=== PATIENT | female | born 1955 | race Caucasian/White ===

== ENCOUNTER 2018-02-11 05:53 | Emergency (ER) | payer BC ==
--- NOTE | 2018-02-11 06:07 | EDPHY ---
H & P Stated Complaint: Fell tripped yesterday and now having right forearm pain Time Seen by Provider: 02/11/18 06:07 HPI/ROS: HPI CHIEF COMPLAINT: Right elbow pain. HISTORY OF PRESENT ILLNESS: Patient is a 62-year-old female, she is otherwise healthy without any significant medical history presents emergency room with right elbow pain and right proximal forearm pain. She went for walk yesterday around 5:00 p.m. She tripped and fell landing on her right elbow. Since then she has had ongoing pain. Woke up this morning with worsening pain. Describes it as 6/10 throbbing. Main location right posterior elbow. The with range of motion or supination or pronation causes pain. Past Medical History: Denies significant medical Past Surgical History: He denies significant surgical history Social History: Denies drugs alcohol tobacco. Family History: Noncontributory ROS REVIEW OF SYSTEMS: 10 Systems were reviewed and negative with the exception of the elements mentioned in the history of present illness. Exam Constitutional triage nursing summary reviewed, vital signs reviewed, awake/ alert. Eyes normal conjunctivae and sclera, EOMI, PERRLA. HENT normal inspection, atraumatic, moist mucus membranes, no epistaxis, neck supple/ no meningismus, no raccoon eyes. Respiratory clear to auscultation bilaterally, normal breath sounds, no respiratory distress, no wheezing. Cardiovascular rate normal, regular rhythm, no murmur, no edema, distal pulses normal. Gastrointestinal soft, non-tender, no rebound, no guarding, normal bowel sounds, no distension, no pulsatile mass. Genitourinary no CVA tenderness. Musculoskeletal right upper extremity: Good radial pulse, good cap refill, range of motion causes discomfort. And specially supination pronation. Tender palpation over the olecranon. Otherwise distally right upper extremity neurovascular intact good aluminum pool installer strength, good cap refill, good radial pulse. no midline vertebral tenderness, full range of motion, no calf swelling, no tenderness of extremities, no meningismus, good pulses, neurovascularly intact. Skin pink, warm, & dry, no rash, skin atraumatic. Neurologic awake, alert and oriented x 3, AAOx3, moves all 4 extremities equally, motor intact, sensory intact, CN II-XII intact, normal cerebellar, normal vision, normal speech. Psychiatric normal mood/affect. Heme/Lymph/Immune no lymphadenopathy. Differential Diagnosis: Includes but is not limited to in a particular order elbow contusion, elbow sprain, elbow fracture, radial head fracture Medical Decision Making: Plan for this patient she declined pain medicine this time in emergency room. X-ray right elbow, x-ray right forearm. Re-evaluation: X-ray of the right elbow, and right forearm reviewed. This shows possible radial head fracture. Patient be splinted posterior long-arm splint with sling. Recommend orthopedic follow-up. Recommend sling and splint for comfort. Return to the ER for worsening symptoms questions concerns. Follow up with Orthopedics. Patient splinted posterior long-arm splint. For comfort. Concern for radial head fracture. Understands follow-up with Orthopedics. 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 - Social History Smoking Status: Never smoked Constitutional: Initial Vital Signs Temperature (C) 36.8 C 02/11/18 05:55 Heart Rate 82 02/11/18 05:55 Respiratory Rate 16 02/11/18 05:55 Blood Pressure 162/84 H 02/11/18 05:55 O2 Sat (%) 95 02/11/18 05:55 O2 Delivery Mode Room Air Allergies/Adverse Reactions: No Known Allergies Allergy (Unverified 02/11/18 05:59) Home Medications: Medication Instructions Recorded Hydrocodone/APAP 5/325 [[place] 1 - 2 tab PO Q4H PRN #10 tab 02/11/18 5/325] Ibuprofen [Motrin (*)] 800 mg PO Q6-8PRN #10 tab 02/11/18 Departure - Departure Disposition: Home, Routine, Self-Care Clinical Impression: Elbow fracture Qualifiers: Encounter type: initial encounter Fracture type: closed Laterality: right Qualified Code(s): S42.401A - Unspecified fracture of lower end of right humerus , initial encounter for closed fracture Condition: Good Instructions: Elbow Fracture (ED) Additional Instructions: 1. Please follow up with Orthopedics 2. Splint and sling for comfort. 3. Return if worsening symptoms questions or concerns. Referrals: NONE *PRIMARY CARE P,. [Primary Care Provider] - As per Instructions Raffaele Chen MD [Medical Doctor] - As per Instructions Prescriptions: Hydrocodone/APAP 5/325 [[place] 5/325] 1 - 2 tab PO Q4H PRN #10 tab PRN Reason: Pain, Moderate Ibuprofen [Motrin (*)] 800 mg PO Q6-8PRN #10 tab
[2018-02-11 08:49] VITALS: BP 144/98
== END 2018-02-11 08:15 | disposition home or self-care (01) ==
PROC: 2W38X1Z Immobilization of Right Upper Extremity using Splint (ICD-10-PCS; principal; 2018-02-11)
DX: S42.494A Other nondisplaced fracture of lower end of right humerus, initial encounter for closed fracture (principal); W01.0XXA Fall on same level from slipping, tripping and stumbling without subsequent striking against object, initial encounter; Y93.01 Activity, walking, marching and hiking; Y99.8 Other external cause status
CPT/HCPCS: A4565

== ENCOUNTER → 2018-08-11 | Outpatient (CLI) | payer OTHER, MEDICARE | LOC: FIMAGING 11:35 | PROVIDERS: ATTEND Orthopaedic Surgery | DX: M16.11 Unilateral primary osteoarthritis, right hip (principal) ==

== ENCOUNTER 2018-09-07 05:42 | Inpatient (IN) | payer OTHER, MEDICARE ==
[2018-09-07] MEDS ORDERED: TRANEXAMIC ACID 1,000 MG in NS 100 ML IV ONE (06:00)
[2018-09-07] MEDS ORDERED: ROPIVACAINE 0.2% 80 MG, EPINEPHrine 0.2 MG, KETOROLAC TROMETHAMINE 30 MG in SYRINGE 0 ML IU ONE (06:00)
[2018-09-07] MEDS ORDERED: POVIDONE-IODINE 20 ML in SODIUM CL IRRIG SOLUTION 500 ML IRR ONE (06:00)
[2018-09-07] MEDS ORDERED: ACETAMINOPHEN 325 MG TAB PO ONE (06:10)
[2018-09-07] MEDS ORDERED: DEXAMETHASONE 4 MG/ML VIAL IVP ONE (06:10)
[2018-09-07] MEDS ORDERED: FAMOTIDINE 20 MG TAB PO ONE (06:10)
[2018-09-07] MEDS ORDERED: ceFAZolin 2 GM/DEXTROSE 100 ML IV ONE (06:10)
[2018-09-07] MEDS ORDERED: LR 1,000 ML IV ONE (06:12)
[2018-09-07] MEDS ORDERED: LIDOCAINE 1% 2 ML INJ ID PRN (06:12)
[2018-09-07] MEDS ORDERED: BUPIVACAINE/EPI 0.5% 30 ML SDV ONE (06:36)
--- NOTE | 2018-09-07 07:04 | PDHPUP ---
History & Physical Update H&P update statement: This history and physical update is based on an assessment of the patient which was completed after admission or registration (within 24 hours), but prior to the surgery/procedure. H&P update: H&P reviewed & patient examined, no change in patient's condition since H&P completed
[2018-09-07] MEDS ORDERED: MIDAZOLAM 2 MG/2 ML VIAL IVP ONE (07:05)
[2018-09-07] MEDS ORDERED: MIDAZOLAM 2 MG/2 ML VIAL ONE (07:06)
--- NOTE | 2018-09-07 07:07 | PDANEPAE ---
ANE History of Present Illness 63 year old with right hip arthritis ANE Past Medical History - Cardiovascular History Hx Hypertension: No Hx Arrhythmias: No Hx Chest Pain: No Hx Coronary Artery / Peripheral Vascular Disease: No Hx CHF / Valvular Disease: No Hx Palpitations: Yes Cardiovascular History Comment: INTERMITTENT PAC'S,PVC'S. PREV CARDIAC WORKUPS NEG - Pulmonary History Hx COPD: No Hx Asthma/Reactive Airway Disease: No Hx Recent Upper Respiratory Infection: No Hx Oxygen in Use at Home: No Hx Sleep Apnea: No Sleep Apnea Screening Result - Last Documented: Negative - Neurologic History Hx Cerebrovascular Accident: No Hx Seizures: No Hx Dementia: No - Endocrine History Hx Diabetes: No - Renal History Hx Renal Disorders: No - Liver History Hx Hepatic Disorders: Yes Hepatic History Comment: SEE PREV SURGERIES - Neurological & Psychiatric Hx Hx Neurological and Psychiatric Disorders: No - Cancer History Hx Cancer: No - Congenital Disorder History Hx Congenital Disorders: No - GI History Hx Gastrointestinal Disorders: No - Other Health History Other Health History: OSTEOARTHRITIS - Chronic Pain History Chronic Pain: Yes (RT HIP) - Surgical History Prior Surgeries: CHAPO/1 REMVL OF PANCREAS,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 LT BREAST BX ANE Review of Systems Review of Systems: - Exercise capacity METS (RN): 4 METS ANE Patient History - Allergies Allergies/Adverse Reactions: No Known Allergies Allergy (Verified 08/11/18 11:31) - Home Medications Home Medications: Cholecalciferol Vit D3 [Vitamin D3 (*)] 1,000 units PO DAILY 08/11/18 [Last Taken 08/24/18] Herbals/Supplements -Info Only 1 ea PO DAILY 08/11/18 [Last Taken 08/24/18] Ibuprofen [Motrin (*)] 200 mg PO Q4HRS PRN 08/11/18 [Last Taken 08/24/18] Multivitamins [Multivitamin (*)] 1 each PO DAILY 08/11/18 [Last Taken 08/24/18] [place]-3 Fatty Acids [Fish Oil 1000 mg (*)] 1,000 mg PO DAILY 08/11/18 [Last Taken 08/24/18] Vitamin B Complex [Vitamin B Complex (OTC)] 1 each PO DAILY 08/11/18 [Last Taken 08/24/18] ACETAMINOPHEN DAILY 08/18/18 [Last Taken 09/06/18 21:00] Valtrex PRN 08/18/18 [Last Taken 08/28/18] - Smoking Hx Smoking Status: Never smoked ANE Labs/Vital Signs - Vital Signs Height: 152.4 cm Weight: 86.183 kg ANE Physical Exam - Airway Neck exam: FROM Mallampati Score: Class 1 - Pulmonary Pulmonary: no respiratory distress - Cardiovascular Cardiovascular: regular rate and rhythym - ASA Status ASA Status: II ANE Anesthesia Plan Anesthesia Plan: spinal
[2018-09-07] MEDS ORDERED: PROPOFOL/EMULSION 500 MG/50 ML BOTTLE IV ONE ×2 (07:17→09:16)
[2018-09-07] MEDS ORDERED: fentaNYL 100 MCG/2 ML INJ ONE (07:17)
[2018-09-07] MEDS ORDERED: ONDANSETRON 4 MG/2 ML VIAL IVP PRN ×2 (09:22→09:23)
[2018-09-07] MEDS ORDERED: NALOXONE HCL 0.4 MG/ML INJ IVP PRN (09:22)
[2018-09-07] MEDS ORDERED: PROMETHAZINE HCL 25 MG/ML INJ IVP PRN ×2 (09:22→09:23)
[2018-09-07] MEDS ORDERED: fentaNYL 100 MCG/2 ML INJ IVP PRN (09:22)
[2018-09-07] MEDS ORDERED: diphenhydrAMINE 25 MG CAP PO PRN (09:23)
[2018-09-07] MEDS ORDERED: BISACODYL 10 MG SUPP PR PRN (09:23)
[2018-09-07] MEDS ORDERED: TEMAZEPAM 15 MG CAP PO PRN (09:23)
[2018-09-07] MEDS ORDERED: POLYETHYLENE GLYCOL 3350 17 GM PKT PO PRN (09:23)
[2018-09-07] MEDS ORDERED: METOCLOPRAMIDE 10 MG/2 ML VIAL IVP PRN (09:23)
[2018-09-07] MEDS ORDERED: ONDANSETRON DISINTEGRATING 4 MG TAB PO PRN (09:23)
[2018-09-07] MEDS ORDERED: MAGNESIUM HYDROXIDE 30 ML UDCUP PO PRN (09:23)
[2018-09-07] MEDS ORDERED: PROMETHAZINE HCL 25 MG SUPPR PR PRN (09:23)
[2018-09-07] MEDS ORDERED: DIPHENOXYLATE/ATROPINE LOMOTIL 1 TAB PO PRN (09:23)
[2018-09-07] MEDS ORDERED: CYCLOBENZAPRINE 10 MG TAB PO PRN (09:23)
[2018-09-07] MEDS ORDERED: LACTULOSE 20 GM/30 ML UDCUP PO PRN (09:23)
--- NOTE | 2018-09-07 09:23 | POSTOPPROG ---
Post Op Note Date of Operation: 09/07/18 Surgeon: Domingo Valenzuela Senior Research Consultant: ROSARIO Mooney Anesthesiologist: MD Kvng Anesthesia: IV Sedation, Spinal Pre-op Diagnosis: R hip OA Post-op Diagnosis: same Procedure: R ant JEANCARLOS with DESI Inf/Abcess present in the surg proc area at time of surgery?: No EBL: 100-500 (300) Drains: Hemovac
--- NOTE | 2018-09-07 09:23 | POSTANESTH ---
Post Anesthetic Evaluation Cardiovascular Status: Normal, Stable Respiratory Status: Normal, Stable Level of Consciousness/Mental Status: Can Participate in Eval Pain Control: Adequate, Prn Tx Ordered Nausea/Vomiting Control: Adequate, Prn Tx Ordered Complications Possibly Related to Anesthesia: None Noted
[2018-09-07] MEDS ORDERED: LR 1,000 ML IV SCH (09:30)
[2018-09-07] MEDS: CHOLECALCIFEROL VIT D3 1,000 UNITS TAB PO SCH (11:04)
[2018-09-07] MEDS: MULTIVITAMINS 1 EACH TAB PO SCH (11:05)
[2018-09-07] MEDS: VITAMIN B COMPLEX 1 EA CAP/TAB PO SCH (11:05)
--- NOTE | 2018-09-07 11:09 | SOAPPROG ---
SOAP Progress Note Assessment/Plan: Assessment: s/p right JEANCARLOS, anterior approach, DESI assist - procedure earlier this morning Plan: Begin discharge planning - likely going home tomorrow, will have support of her Continue PT efforts - follow anterior total hip precautions. She has outpatient PT scheduled for next Tuesday Continue pain medication - celebrex, oxycodone, tylenol, flexeril ordered Continue VTE ppx - aspirin 81 mg BID, SCDs, TIFFANIE hose Remove drain tomorrow morning Subjective: Patient states she is feeling pretty good at this time, right hip pain is minimal. She is hoping to go home tomorrow, she will have the support of her at home. She complains of having some left shoulder pain, primarily in the posterior aspect. She denies shortness of breath, chest pain, fever, chills , nausea Objective: Vital Signs Temp Pulse Resp BP Pulse Ox 35.9 C L 60 14 126/76 H 97 09/07/18 10:39 09/07/18 10:39 09/07/18 10:39 09/07/18 10:39 09/07/18 10:39 09/06/18 09/07/18 09/08/18 05:59 05:59 05:59 Intake Total 1500 Output Total 1050 Balance 450 Patient resting comfortably in bed, no acute distress. RLE: Hemovac is in place. Mepilex is clean, dry and intact. Mild edema about the hip. No significant erythema or purulent drainage. Calf is soft and nontender. She can actively DF and PF her right foot and great toe against resistance. Grossly NVI distally. Warm blanket was applied to the posterior aspects of the patients shoulders, this seemed to alleviate the left shoulder pain. ICD10 Worksheet Patient Problems: Problems Problem Status Onset Osteoarthritis of right hip Acute
[2018-09-07] MEDS: oxyCODONE IR 5 MG TAB PO PRN ×3 (11:54→21:49)
--- NOTE | 2018-09-07 12:08 | PDMN ---
Medical Necessity Medical necessity: [facility] IP only surgery; cpt 51052 R JEANCARLOS
[2018-09-07] MEDS: ACETAMINOPHEN 325 MG TAB PO SCH ×2 (15:02→21:47)
[2018-09-07] MEDS: ceFAZolin 2 GM/DEXTROSE 100 ML IV SCH ×2 (15:03→23:48)
[2018-09-07] MEDS: FAMOTIDINE 20 MG TAB PO SCH (21:04)
[2018-09-07] MEDS: SENNOSIDES/DOCUSATE SODIUM TAB PO SCH (21:04)
[2018-09-07] MEDS: ASPIRIN 81 MG CHEWABLE TAB PO SCH (21:04)
--- NOTE | 2018-09-07 23:27 | GOP ---
[f rep st] OPERATIVE REPORT DATE OF OPERATION: 09/07/2018 SURGEON: Domingo Valenzuela MD DIRECTOR OF SOCIAL MEDIA MARKETING: Cipriano Mooney, CSFA, LSA. Handicrafts Teacher was required for the procedure due to the comple xity of the case, patient's condition for positioning, prepping, draping, retraction, and closure. ANESTHESIA: Spinal and IV sedation. PREOPERATIVE DIAGNOSIS: Right hip osteoarthritis. POSTOPERATIVE DIAGNOSIS: Right hip osteoarthritis. PROCEDURE PERFORMED: Right hip anterior approach hip replacement with MAKOplasty robotic guidance, f luoroscopic supervision greater than 1 hour. FINDINGS: SPECIMENS: Femoral head x1. ESTIMATED BLOOD LOSS: 300 cc. INDICATIONS: Patient has severe hip osteoarthritis that failed to improve with conservative measures significantly affecting activities of daily living including walking. The patient elected to procee d with anterior approach hip replacement using MAKOplasty robotic guidance after extensive discussion of all possible approaches as well as the risks, benefits, pros, cons, expected recovery and prognos is. The patient verbalized understanding of the risks, benefits, procedure and signed informed conse nt prior to the procedure. DESCRIPTION OF PROCEDURE: The patient was seen in the holding area. Operative consent and extremity were signed. The patient was taken to the operating room. After smooth induction of spinal anesthe víctor and sedation, she was placed in supine position on the operating room table with the arch table e xtension. Hip and contralateral iliac crest were prepped and draped in the usual sterile fashion. T he operative site was confirmed by signature. Operative time-out performed. Allergies reviewed. An tibiotics and TXA were administered. Three pins were placed in the contralateral iliac crest. Pelvic array was fixed. It was well visual ized by the robot. Desired incision for the anterior approach hip was infiltrated with 0.25% Marcain e with epinephrine. Incision was made with a 10 blade, carried down through the subcutaneous tissue to identify the TFL fascia. This was incised in line with the incision, and the TFL was retracted la terally. Lateral femoral circumflex vessels were coagulated with Aquamantys. The deep TFL fascia wa s incised and the vastus lateralis was clearly exposed. Precapsular fat was excised. A T-shaped cap sulotomy was performed. The capsule was preserved for later closure. The femoral neck cut was then performed based on pretemplated calculations and imaging. The femoral head was excised with a corkscrew. The acetabulum was exposed in standard fashion. The labrum, pulvinar, soft tissues were excised melissa ply. Pelvic checkpoint was placed in the AIIS, and acetabular registration was performed using the r obot. Reaming was then performed using the robot to the desired size. Cup was impacted into place a gain with robotic guidance system. Good fixation was achieved. The cup was irrigated and dried, and the liner was impacted into place achieving good locking within the cup. The femur was then exposed in standard fashion. The femur was broached to the desired size. Trial n moe and head were attached, and the hip was relocated. The position of all components was confirmed fluoroscopically. The foot was externally rotated 90 degrees, extended to the floor, and stability w as confirmed. The hip was then dislocated, and the femoral trial components were removed. The stem was impacted into place. The trunnion was then cleaned and dried, and the head was impacted down ont o the trunnion. The wound was copiously irrigated including the cup with pulse lavage, and the hip w as once again relocated. Component placement was confirmed with fluoroscopy. All checkpoints were removed. The pelvic array was also removed. The wound was copiously irrigated with sterile solution. Dilute Betadine solution was then irrigated into the wound and allowed to soa k for 3 minutes before being irrigated out. Joint cocktail was injected in the soft tissue, and caps ule and indirect head of the rectus femoris were repaired with #1 Vicryl sutures. A drain was placed exiting distally and laterally from deep to TFL. The wound was then closed in layers with 0 Quill i n the TFL fascia and deep subcutaneous fat, 3 oversew lock in the dermis. Wound was dressed with allyn rile dressing. Patient was safely awakened and taken to the recovery room and taken in stable condit ion. All critical portions of procedure were performed by myself, Dr. Valenzuela. This operative note was creat ed by myself, and I was immediately available for emergency cross-coverage at all times. DRAINS: Hemovac x1. COMPLICATIONS: None. IMPLANTS: Include Jasper Trident II Tritanium cluster hole acetabular shell size 50 mm with a 0-deg ree, 36 mm polyethylene liner. Jasper Accolate II size 4 stem 127-degree offset with a 36 mm -2.5 m m head. /[id number]/MODL
[2018-09-08] MEDS: ACETAMINOPHEN 325 MG TAB PO SCH ×2 (03:36→08:12)
--- NOTE | 2018-09-08 07:19 | SOAPPROG ---
SOAP Progress Note Assessment/Plan: Assessment: 63-year-old female postop day 1 status post right anterior total hip Plan: Weightbear as tolerated with assistance, PT/OT DVT prophylaxis: SCDs Rahul naranjoe aspirin 81 mg twice daily Incentive spirometry 10 times per hour Analgesics: Oxycodone, Celebrex Disposition: Home after physical therapy this morning 09/08/18 07:20 Subjective: No acute events overnight. Pain well controlled. Denies fevers chills nausea vomiting chest pain shortness of breath tingling. Admits to mild numbness over the anterior right thigh. Still complains of right knee pain she had preoperatively. Also high and ankle soreness most likely related to surgical positioning which has resolved Objective: Vital Signs Temp Pulse Resp BP Pulse Ox 36.9 C 79 16 128/80 H 92 09/07/18 23:51 09/07/18 23:51 09/07/18 23:51 09/07/18 23:51 09/07/18 23:51 Laboratory Results 09/08/18 04:13 09/07/18 09/08/18 09/09/18 05:59 05:59 05:59 Intake Total 5568 Output Total 4055 Balance 1513 Week alert and oriented x3 new line easy nonlabored breathing Right thigh: Dressing clean dry intact no erythema drainage or signs of infection Drain removed Thigh and calf compartments soft compressible Motor intact EHL FHL tibialis anterior gastrocsoleus Sensation intact to light touch L4-S1 Palpable DP PT pulses - Time Spent With Patient Time Spent With Patient: 10 - Pending Discharge Pending Discharge Within 24 Hours: Yes Pending Discharge Date: 09/08/18 Pending Discharge Time: 11:00 ICD10 Worksheet Patient Problems: Problems Problem Status Onset Osteoarthritis of right hip Acute
[2018-09-08 07:42] VITALS: BP 124/68
[2018-09-08] MEDS: oxyCODONE IR 5 MG TAB PO PRN (08:12)
[2018-09-08] MEDS: FAMOTIDINE 20 MG TAB PO SCH (08:13)
[2018-09-08] MEDS: MULTIVITAMINS 1 EACH TAB PO SCH (08:13)
[2018-09-08] MEDS: VITAMIN B COMPLEX 1 EA CAP/TAB PO SCH (08:13)
[2018-09-08] MEDS: SENNOSIDES/DOCUSATE SODIUM TAB PO SCH (08:13)
[2018-09-08] MEDS: ASPIRIN 81 MG CHEWABLE TAB PO SCH (08:13)
[2018-09-08] MEDS: CHOLECALCIFEROL VIT D3 1,000 UNITS TAB PO SCH (08:13)
--- NOTE | 2018-09-08 08:39 | PDDCSUM ---
Discharge Summary Discharge Summary: ADMISSION DIAGNOSIS: Right hip severe degenerative arthritis DISCHARGE DIAGNOSIS: Right hip severe degenerative arthritis DATE/OPERATION PERFORMED: September 07, 2018/Right total hip arthroplasty, anterior approach, DESI assist POSTOPERATIVE COMPLICATIONS: None CONDITION ON DISCHARGE: Improved HPI: The patient is a 63 year old female who has end-stage arthritis of her right hip. Clinical and radiographic features are consistent with this. Patient has failed attempts at conservative management, therefore, recommended operative right total hip replacement. DESCRIPTION OF HOSPITAL COURSE: The patient was admitted to the hospital on the morning of surgery. The patient was cleared by her PCP to proceed with the right total hip arthroplasty. The same day, under spinal anesthesia and IV sedation patient underwent a right total hip arthroplasty, anterior approach, DESI assist. Postoperatively, patient was treated with multimodal DVT prophylaxis, including aspirin 81 mg twice per day, SCDs, TIFFANIE hose. Patient was seen by PT and made good progress with ambulation and stairs. On the first post- operative day the patients H&H was 12.1/36.5. On the morning of POD 1 she did experience dizziness, lightheadedness and a bit of nausea as she stood up from her chair after doing exercises on her own. BP was taken and she was a bit hypotensive. This has since resolved and she has not had any other episodes. Patient was able to void spontaneously. At the time of discharge, patient was afebrile, wound was clean and dry. Lower leg compartments are soft and nontender. Grossly NVI distally. Patient is dependently walking with a walker. DISPOSITION: The patient is discharged home and will have her outpatient PT evaluation next Tuesday. Patient may progress to full weightbearing on the right lower extremity as tolerated. She will continue to take aspirin 81 mg twice per day for VTE prophylaxis until 3 weeks post-operative. Patient has prescriptions for Percocet and Celebrex for pain control. She can also continue to take Tylenol as needed for pain. The patient will be seen by Dr. Valenzuela in the office for her 2 week post-operative appointment. If there are any problems, patient is to call Dr. Valenzuela's office.
--- NOTE | 2018-09-08 09:38 | ASMTLACE ---
LACE Length of stay for Answers: 2 days current admission Acuity / Level of Answers: Yes Care: Did the patient have an inpatient admission? Comorbidities - select Answers: Opioid dependence all that apply / Chronic pain # of Emergency department Answers: 0 visits in the last 6 months Score: 9 Date Signed: 09/08/2018 09:37 AM Electronically Signed By:MART Blanco
--- NOTE | 2018-09-08 09:40 | ASMTCMCOM ---
CM Note CM Note Notes: Pt had planned OA of hip, resides with spouse. PT rec HHC/outpatient. rec outpatient. Pt medically stable for d/c home with family support, no CM d/c needs identified. Date Signed: 09/08/2018 09:40 AM Electronically Signed By:MART Blanco
== END 2018-09-08 12:28 | disposition home or self-care (01) | DRG 470 ==
LOC: F3N 05:42
PROVIDERS: ADMIT Orthopaedic Surgery; ATTEND Orthopaedic Surgery
PROC: 0SR904Z Replacement of Right Hip Joint with Ceramic on Polyethylene Synthetic Substitute, Open Approach (ICD-10-PCS; principal; 2018-09-07 07:15)
PROC: 8E0Y0CZ Robotic Assisted Procedure of Lower Extremity, Open Approach (ICD-10-PCS; principal; 2018-09-07 07:15)
DX: M16.11 Unilateral primary osteoarthritis, right hip (principal)
CPT/HCPCS: 97116-GP; 97161-GP; 97165-GO; J0171; J0690; J1100; J1885; J2250; J2704; J2795; J3010

== ENCOUNTER 2018-10-16 22:30 | Inpatient (IN) | payer OTHER, MEDICARE | END 2018-10-18 14:20 | disposition home or self-care (01) | LOC: F1N 10-17 01:46 ==

== ENCOUNTER → 2018-10-30 | Outpatient (CLI) | payer OTHER, MEDICARE | LOC: FIMAGING 12:54 ==